=== PATIENT | male | born 1955 | race Caucasian/White ===

== ENCOUNTER 2022-10-31 09:38 | Outpatient (CLI) | payer MEDICARE, SELFPAY ==
[2022-10-31 18:27] LABS: Alanine Aminotransferase 48 U/L (6-50); Albumin Level 4.5 g/dL (3.5-5.1); Alkaline Phosphatase 77 U/L (38-126); Anion Gap 7 mmol/L (8-16); Aspartate Amino Transferase 55 U/L (17-59); Bilirubin,Total 1.4 mg/dL (0.2-1.3); Blood Urea Nitrogen 20 mg/dL (9-20); Calcium 9.3 mg/dL (8.4-10.2); Carbon Dioxide 30 mmol/L (22-30); Chloride 100 mmol/L (98-107); Cholesterol 124 mg/dL (0-200); Estimated Glomerular Filt Rate > 60; Glucose 106 mg/dL (65-110); HDL Direct 23 mg/dL; Potassium 4.6 mmol/L (3.4-5.0); Sodium 137 mmol/L (137-145); Triglycerides 129 mg/dL (<150)
[2022-10-31 18:38] LABS: LDL Cholesterol Direct 70 mg/dL
[2022-10-31 18:58] LABS: Prostate Specific Antigen 3.4 ng/mL (< OR = 4.0)
[2022-10-31 19:30] LABS: Basophils Absolute Auto 0.1 K/mm3 (0.0-0.1); Basophils Percent Auto 0.9 % (0.2-1.2); Eosinophils Absolute Auto 1.5 K/mm3 (0-0.3); Eosinophils Percent Auto 19.1 % (0-4.4); Hematocrit 44.2 % (42.0-52.0); Hemoglobin 14.5 g/dL (14.0-18.0); Immature Granulocyte Absolute 0.02 K/mm3 (0.00-0.031); Immature Granulocyte Percent A 0.2 % (0-0.5); Lymphocytes Absolute Auto 1.73 K/mm3 (0.9-3.2); Lymphocytes Percent Auto 21.5 % (18.3-44.2); Mean Corpuscular HGB Conc 32.8 g/dl (32-36); Mean Corpuscular Hemoglobin 29.4 pg (26-34); Mean Corpuscular Volume 89.7 fl (80-100); Mean Platelet Volume 10.2 fl (7.4-10.4); Neutrophils Absolute Auto 3.7 K/mm3 (1.3-6.7); Neutrophils Percent Auto 46.3 % (45.5-73.1); Platelet Count Result 276 k/mm3 (150-375); Red Blood Count 4.93 M/mm3 (4.6-6.20); Red Cell Distribution Width 13.6 % (11.5-14.5)
[2022-10-31 19:39] LABS: Hemoglobin A1C 6.4 % (<5.7)
== END 2022-10-31 09:39 | disposition home or self-care (01) ==
LOC: ANHGOSHLAB 09:43
PROVIDERS: PCP Family Medicine; Visit Provider Physician Assistant
DX: R73.03 Prediabetes (principal); E78.2 Mixed hyperlipidemia; I10 Essential (primary) hypertension; R97.20 Elevated prostate specific antigen [PSA]; Z12.5 Encounter for screening for malignant neoplasm of prostate
CPT/HCPCS: 36415; 80053; 80061; 83036; 84153; 84443; 85025; G0103

== ENCOUNTER 2022-12-11 01:01 | Day surgery (SDC) | payer MEDICARE, SELFPAY ==
[2022-11-26 15:28] VITALS: BMI 27.8
[2022-12-11 08:17] VITALS: BP 104/64; PULSE 82; RESP 18; TEMP 36.1; O2SAT 97
[2022-12-11 08:32] LABS: Glucose Point of Care 90 mg/dl (65-105)
[2022-12-11] MEDS: LACTATED RINGERS 1,000 ML 150 ML IV CONT (08:33)
--- NOTE | 2022-12-11 08:47 | PM.HPGS ---
History of Present Illness History of Present Illness Consent: Risks, benefits, and alternatives have been discussed and questions answered. Patient agrees to proceed with procedure. Chief complaint: neoplasm screening Narrative: Sheldon Becerril is a 67 year old male Presents for screening colonoscopy. Patient's current weight appetite and bowel movements are normal. Patient denies abdominal pain. He has had no bleeding. Family history is noncontributory. Patient's previous colonoscopy 12 years ago was unremarkable. Review of Systems Review of Systems: Review of systems noncontributory. PMFSH Family History Family History Father Diabetes mellitus Hypertension Family history of malignant neoplasm Mother Diabetes mellitus Hypertension Social History Social History Smoking status: Never smoker Alcohol intake: current Drinks per week: 1 Substance use: never Substance use type: does not use Lack of Transportation: No Lack of Food: Never True Current Housing: I Have Housing Concerned About Future Housing: No Difficulty Paying Gas/Electric Bills: No Difficulty Paying for Meds: No Currently Unemployed: No Education: High School Diploma/GED Difficulty w/ Childcare or Family Care: No Spiritual care concerns: No Meds Home Medications and Allergies Home Medications Medication Instructions Recorded Confirmed Type hydroxychloroquine 200 mg tablet 200 mg PO DAILY 11/14/20 11/26/22 History magnesium oxide 500 mg tablet 750 mg PO DAILY 11/14/20 11/26/22 History lisinopril 40 mg tablet 40 mg PO DAILY #90 tabs 05/24/22 11/26/22 Rx atorvastatin 40 mg tablet 40 mg PO DAILY #90 tabs 06/11/22 11/26/22 Rx metformin 500 mg tablet See Rx Instructions .Route 10/15/22 11/26/22 Rx .COMPLEX #90 tabs aspirin 81 mg capsule 81 mg PO DAILY 11/06/22 11/26/22 History [id number] 120 mcg-lutein 1 tablet PO DAILY 11/06/22 11/26/22 History 150 mcg-herb 50 mg chewable tablet (Alive Men's 50 Plus Multivitamin) sodium,potassium,mag sulfates 17.5 See Rx Instructions PO .COMPLEX 11/06/22 11/26/22 Rx gram-3.13 gram-1.6 gram oral soln #354 mL (Suprep Bowel Prep Kit) hydrochlorothiazide 12.5 mg capsule 12.5 mg PO DAILY #90 caps 11/27/22 Rx Allergies Allergy/AdvReac Type Severity Reaction Status Date / Time mushroom Allergy Unknown Nausea Verified 12/11/22 08:16 NO KNOWN DRUG ALLERGIES Allergy Y Uncoded 12/11/22 08:16 (Class Allergy) Vital Signs Vital Signs - 24 hr 12/11/22 08:17 Temperature 97 F L Pulse Rate 82 Respiratory Rate 18 Blood Pressure 104/64 Pulse Oximetry 97 Oxygen Delivery Room Air Exam Narrative: Physical exam reveals patient to be alert. Vital signs stable. HEENT exam is unremarkable. Patient is anicteric. Lungs are clear to auscultation and percussion. Heart is without murmur or extra sounds. Abdomen bowel sounds are present soft nontender with no organomegaly. Digital external rectal exam is normal. Assessment and Plan Assessment and plan (1) Encounter for screening colonoscopy: Code(s): Z12.11 - Encounter for screening for malignant neoplasm of colon Status: Acute Assessment and Plan: Patient presents today for screening colonoscopy. He appears to be at average risk for colon polyps. Further recommendations may be given after endoscopy.
--- NOTE | 2022-12-11 08:48 | WPDANESEPPF ---
Anes - Initial Pre Proc Eval Procedure: Operation Date: 12/11/22 09:30 Proposed Procedures p Screening Colonoscopy - Solo Taylor MD Date/Time: 12/11/22 08:48 Surgeon: Solo Taylor MD Pre Op Diagnosis: neoplasm screening Patient Data Age: 67 Gender: M Height: 1.78 m Weight: 88.1 kg Last Vital Signs Temp 97 F L 12/11/22 08:17 Pulse 82 12/11/22 08:17 Resp 18 12/11/22 08:17 BP 104/64 12/11/22 08:17 Pulse Ox 97 12/11/22 08:17 O2 Del Method Room Air 12/11/22 08:17 Allergies Allergy/AdvReac Type Severity Reaction Status Date / Time mushroom Allergy Unknown Nausea Verified 12/11/22 08:16 NO KNOWN DRUG ALLERGIES Allergy Y Uncoded 12/11/22 08:16 (Class Allergy) Home Medications Medication Instructions Recorded Confirmed Type hydroxychloroquine 200 mg tablet 200 mg PO DAILY 11/14/20 11/26/22 History magnesium oxide 500 mg tablet 750 mg PO DAILY 11/14/20 11/26/22 History lisinopril 40 mg tablet 40 mg PO DAILY #90 tabs 05/24/22 11/26/22 Rx atorvastatin 40 mg tablet 40 mg PO DAILY #90 tabs 06/11/22 11/26/22 Rx metformin 500 mg tablet See Rx Instructions .Route 10/15/22 11/26/22 Rx .COMPLEX #90 tabs aspirin 81 mg capsule 81 mg PO DAILY 11/06/22 11/26/22 History [id number] 120 mcg-lutein 1 tablet PO DAILY 11/06/22 11/26/22 History 150 mcg-herb 50 mg chewable tablet (Alive Men's 50 Plus Multivitamin) sodium,potassium,mag sulfates 17.5 See Rx Instructions PO .COMPLEX 11/06/22 11/26/22 Rx gram-3.13 gram-1.6 gram oral soln #354 mL (Suprep Bowel Prep Kit) hydrochlorothiazide 12.5 mg capsule 12.5 mg PO DAILY #90 caps 11/27/22 Rx Laboratory Tests 12/11/22 08:28 POC Capillary Glucose 90 mg/dl mg/dl (65-105) Patient hx anesthesia problems: none Family hx anesthesia problems: none Results Review: All pre-operative results and documents have been reviewed as part of the pre-operative evaluation. [facility] Family History Family History Father Diabetes mellitus Hypertension Family history of malignant neoplasm Mother Diabetes mellitus Hypertension Social History Social History Smoking status: Never smoker Alcohol intake: current Drinks per week: 1 Substance use: never Substance use type: does not use Lack of Transportation: No Lack of Food: Never True Current Housing: I Have Housing Concerned About Future Housing: No Difficulty Paying Gas/Electric Bills: No Difficulty Paying for Meds: No Currently Unemployed: No Education: High School Diploma/GED Difficulty w/ Childcare or Family Care: No Spiritual care concerns: No Anes - Eval Final PreProcedure Day of Procedure 12/11/22 08:48 Patient weight: obese Heart: regular rate and rhythm Lungs: clear to auscultation Airway: Mallampati scale class II Neurological: alert and oriented Last oral intake: >/= 8 hours ASA classification: III Emergent: no Anesthetic plan: proceed Anesthesia type and monitoring: general GIVS and standard monitoring Results Review: All pre-operative results and documents have been reviewed as part of the pre-operative evaluation. Informed Consent: The patient's anesthetic plan and its attendant risks and benefits were discussed with the patient/family/POA. Questions were solicited and answers provided to the satisfaction of the patient/family/POA.
[2022-12-11 09:36] VITALS: BP 108/59; PULSE 80; RESP 19; O2SAT 99
[2022-12-11 09:46] VITALS: BP 112/73; PULSE 77; RESP 21; O2SAT 98
[2022-12-11 09:56] VITALS: BP 119/79; PULSE 74; RESP 23; O2SAT 99
== END 2022-12-11 09:59 | disposition home or self-care (01) ==
PROVIDERS: PCP Family Medicine; Visit Provider Internal Medicine Gastroenterology
PROC: 0DJD8ZZ Inspection of Lower Intestinal Tract, Via Natural or Artificial Opening Endoscopic (ICD-10-PCS; CPT 45378; principal; 2022-12-11 09:30)
DX: Z12.11 Encounter for screening for malignant neoplasm of colon (principal); K64.8 Other hemorrhoids; Z79.84 Long term (current) use of oral hypoglycemic drugs; Z79.82 Long term (current) use of aspirin
CPT/HCPCS: G0121; 82948; J2704; J7120

== ENCOUNTER 2023-10-01 10:50 | Emergency (ER) | payer MEDICARE, SELFPAY ==
[2023-10-01 11:03] VITALS: BP 123/65; PULSE 88; RESP 16; TEMP 36.3; O2SAT 98
--- NOTE | 2023-10-01 11:14 | ED.URI ---
HPI - URI/Sore Throat General Chief Complaint: Upper Respiratory Infection Stated Complaint: LOSING VOICE/HEAD COLD Time Seen by Provider: 10/01/23 11:15 Source: patient and RN notes reviewed Mode of arrival: ambulatory Limitations: no limitations History of Present Illness HPI Narrative: 68 y/o male with hx HTN presented for c/o postnasal drainage, cough, and losing his voice. Onset 3 days. Denies shortness breath, wheezing, nausea, vomiting, diarrhea fevers chills. Denies sick contacts. Took a Benadryl for symptoms. MD elicited complaint: cough Related Data Home Medications Medication Instructions Recorded Confirmed hydroxychloroquine 200 mg tablet 200 mg PO DAILY 11/14/20 10/01/23 magnesium oxide 500 mg tablet 750 mg PO DAILY 11/14/20 10/01/23 aspirin 81 mg capsule 81 mg PO DAILY 11/06/22 10/01/23 [id number] 120 mcg-lutein 1 tablet PO DAILY 11/06/22 10/01/23 150 mcg-herb 50 mg chewable tablet (Alive Men's 50 Plus Multivitamin) Allergies Allergy/AdvReac Type Severity Reaction Status Date / Time mushroom Allergy Unknown Nausea Verified 07/18/23 14:47 NO KNOWN DRUG ALLERGIES Allergy Y Uncoded 07/18/23 14:21 (Class Allergy) Review of Systems Review of Systems: CONSTITUTIONAL: Denies malaise, chills, sweats, fever EYES: Denies visual changes, redness, or discharge ENT: Reports rhinorrhea, congestion, denies otalgia, sore throat CARDIOVASCULAR: Denies chest pain, palpitations, edema RESPIRATORY: Reports cough, post nasal drainage. Denies dyspnea GASTROINTESTINAL: Denies abdominal pain, nausea, vomiting, diarrhea SKIN: Denies rash or itching MUSCULOSKELETAL: Denies myalgia NEUROLOGIC: Denies headache PMFSH Past Medical History Medical History (Updated 10/01/23 @ 11:23 by Brittany Wright APRN) Essential (primary) hypertension Prediabetes Family History Family History Father Diabetes mellitus Hypertension Family history of malignant neoplasm Mother Diabetes mellitus Hypertension Social History Social History Smoking status: Never smoker Alcohol intake: current Drinks per week: 1 Substance use: never Substance use type: does not use Lack of Transportation: No Lack of Food: Never True Current Housing: I Have Housing Concerned About Future Housing: No Difficulty Paying Gas/Electric Bills: No Difficulty Paying for Meds: No Currently Unemployed: No Education: High School Diploma/GED Difficulty w/ Childcare or Family Care: No Spiritual care concerns: No Exam Narrative: GENERAL: well-appearing, nontoxic no acute distress. HEAD: Normocephalic EYES: PERRLA, conjunctivae clear ENT: Mucous membranes moist. TM pearly samuel with dull light reflex bilaterally; no tragal tenderness. Mild hoarse voice. Oropharynx not erythematous no lesions or exudate, no drooling, no trismus, uvula midline. No tripod positioning, muffled voice, soft palate or pharyngeal wall bulging NECK: Supple. No lymphadenopathy CHEST: Clear to auscultation, breath sounds equal. No wheezing, rhonchi, rales, or stridor. No respiratory distress, speaks in full sentences. HEART: Regular rate and rhythm. No murmur heard. SKIN: Warm, dry, no rash. NEURO: Alert and oriented x3. PSYCH: Normal mood and affect Course Course Emergency Course: Patient is aware of diagnosis, understands and agrees to treatment plan. Anticipatory guidance given. Patient agrees to follow-up as directed and is aware of reasons to seek care at the emergency department. Portions of this record may have been created with voice recognition software Level of Care: Express Care Visit Vital Signs Vital signs: Vital Signs Temperature 97.4 F L 10/01/23 11:03 Pulse Rate 88 10/01/23 11:03 Respiratory Rate 16 10/01/23 11:03 Blood Pressure 123/65 10/01/23 11:03 Pulse Oximetry 98 09/05
== END 2023-10-01 11:22 | disposition home or self-care (01) ==
PROVIDERS: Emergency Provider Nurse Practitioner Family; PCP Family Medicine
DX: J10.1 Influenza due to other identified influenza virus with other respiratory manifestations (principal); Z20.822 Contact with and (suspected) exposure to COVID-19; I10 Essential (primary) hypertension; R73.03 Prediabetes; Z79.82 Long term (current) use of aspirin
CPT/HCPCS: 87426; 87804; 99213; C9803; G0463

== ENCOUNTER 2023-10-31 15:21 | Emergency (ER) | payer MEDICARE, SELFPAY ==
--- NOTE | 2023-10-31 15:27 | ED.LOWEXIN ---
HPI - Extremity Injury (Lower) General Chief Complaint: Extremity Problem,Nontraumatic Stated Complaint: Ankle pain Time Seen by Provider: 10/31/23 15:55 Source: patient Mode of arrival: ambulatory Limitations: no limitations History of Present Illness HPI Narrative: Sheldon is a 68-year-old male patient presenting to the clinic today with complaints left ankle pain and swelling times 5 days. Denies any known fever or chills. States this is not having much pain with walking on it. Has developed a red rash around the ankle. No history of venous stasis, peripheral vascular disease, gout, or cellulitis Related Data Home Medications Medication Instructions Recorded Confirmed hydroxychloroquine 200 mg tablet 200 mg PO DAILY 11/14/20 10/31/23 magnesium oxide 500 mg tablet 750 mg PO DAILY 11/14/20 10/31/23 aspirin 81 mg capsule 81 mg PO DAILY 11/06/22 10/31/23 [id number] 120 mcg-lutein 1 tablet PO DAILY 11/06/22 10/31/23 150 mcg-herb 50 mg chewable tablet (Alive Men's 50 Plus Multivitamin) Allergies Allergy/AdvReac Type Severity Reaction Status Date / Time mushroom Allergy Unknown Nausea Verified 07/18/23 14:47 NO KNOWN DRUG ALLERGIES Allergy Y Uncoded 07/18/23 14:21 (Class Allergy) Review of Systems Review of Systems: Pertinent positives per HPI. Patient denies any fever, chills, rash, headache, visual changes, dizziness, cough, runny nose, sore throat, shortness of breath, chest pain, palpitations, nausea, vomiting, diarrhea, constipation, abdominal pain, or any urinary issues. [facility] Past Medical History Medical History (Updated 10/31/23 @ 16:33 by Jared Jorgensen APRN) Essential (primary) hypertension Prediabetes Family History Family History Father Diabetes mellitus Hypertension Family history of malignant neoplasm Mother Diabetes mellitus Hypertension Social History Social History Smoking status: Never smoker Alcohol intake: current Drinks per week: 1 Substance use: never Substance use type: does not use Lack of Transportation: No Lack of Food: Never True Current Housing: I Have Housing Concerned About Future Housing: No Difficulty Paying Gas/Electric Bills: No Difficulty Paying for Meds: No Currently Unemployed: No Education: High School Diploma/GED Difficulty w/ Childcare or Family Care: No Spiritual care concerns: No Comments At the time of my signature, I reviewed and agree with the nursing past medical, surgical, social, and family history. There is no relevant family history pertinent to the patient complaint. Exam Narrative: General: Well-developed, well nourished, in no apparent distress Head: Normocephalic, atraumatic. Cardio: Regular rate and rhythm, s1 and s2 normal, no murmur appreciated. Resp: Clear to auscultation bilaterally, no rhonchi, rales, wheezing or rubs. Musculoskeletal: No deformity, tender to palpation over the left medial ankle joint, no erythema noted, slight red rash around the lateral and medial ankle, grossly normal range of motion, muscle strength strong and equal, peripheral pulse strong, no edema, no cyanosis, normal gait and station Course Course Emergency Course: Portions of this record may have been created with voice recognition software. Level of Care: Express Care Visit Vital Signs Vital signs: Vital signs reviewed MDM - Extremity Injury (Lower) MDM Narrative Medical decision making narrative: At the time of visit patient is resting comfortably on the exam table. Patient appears to be nontoxic. I believe he is having an inflammatory response to left ankle but cannot rule out early cellulitis. Will send in prescription for doxycycline and prednisone. Supportive measures were discussed with the patient and they voiced understanding discharge instructions and agrees
[2023-10-31 15:32] VITALS: BP 116/75; PULSE 103; RESP 16; TEMP 36.5; O2SAT 98
[2023-10-31 15:33] VITALS: BP 116/75; PULSE 103; RESP 16; TEMP 36.5; O2SAT 98
== END 2023-10-31 16:41 | disposition home or self-care (01) ==
PROVIDERS: Emergency Provider Nurse Practitioner Family; PCP Family Medicine
DX: M25.472 Effusion, left ankle (principal); I10 Essential (primary) hypertension; Z79.899 Other long term (current) drug therapy; Z79.82 Long term (current) use of aspirin
CPT/HCPCS: 99213; G0463

== ENCOUNTER 2024-11-07 09:45 | Emergency (ER) | payer MEDICARE, SELFPAY ==
--- NOTE | 2024-11-07 09:54 | ED.URI ---
HPI - URI/Sore Throat General Chief Complaint: Upper Respiratory Infection Stated Complaint: Sore Thoat Time Seen by Provider: 11/07/24 09:54 Source: patient Mode of arrival: ambulatory Limitations: no limitations History of Present Illness HPI Narrative: patient is a 69-year-old male that presents with over 1 week of sinus congestion, sore throat and cough. Patient states it started as just congestion but has moved down into his throat and chest. Patient reports hoarseness. Denies any fever, chills, nausea, vomiting, diarrhea. Has been taking Sudafed. Related Data Home Medications ?Medication ?Instructions ?Recorded ?Confirmed ?Last Taken ?Type hydroxychloroquine 200 mg tablet 200 mg PO DAILY 11/14/20 07/30/24 Unknown History magnesium oxide 750 mg PO DAILY 11/14/20 07/30/24 Unknown History aspirin 81 mg capsule 81 mg PO DAILY 11/06/22 07/30/24 Unknown History [id number] 120 mcg-lutein 1 tablet PO DAILY 11/06/22 07/30/24 Unknown History 150 mcg-herb 50 mg chewable tablet (Alive Men's 50 Plus Multivitamin) Allergies Allergy/AdvReac Type Severity Reaction Status Date / Time mushroom Allergy Unknown Nausea Verified 07/30/24 10:47 No Known Drug Allergies Allergy Other Verified 11/07/24 10:58 Review of Systems Review of Systems: All systems reviewed & are unremarkable except as noted in HPI and below Constitutional: Constitutional: Denies body ache(s), Denies chills, Denies fatigue, Denies fever(s), Denies headache(s), Denies malaise and Denies weakness Eyes: Eyes: Denies blurry vision, Denies itchy eyes and Denies loss of vision ENT: Denies otalgia, Denies headache(s), Reports hoarseness, Reports nasal congestion, Denies sinus pain, Reports sinus pressure and Reports sore throat Cardiovascular: Cardiovascular: Denies chest pain, Denies irregular heart rhythm and Denies dyspnea Respiratory: Respiratory: Reports cough and Denies dyspnea Gastrointestinal: Gastrointestinal: Denies abdominal pain, Denies diarrhea, Denies nausea and Denies vomiting Musculoskeletal: Musculoskeletal: Denies back pain, Denies myalgias and Denies arthralgias Integumentary/Breasts: Skin/Breast: Denies pruritus and Denies rash Neurologic: Denies headache(s), Denies loss of vision and Denies weakness Psychiatric: Psychiatric: Reports no additional psychiatric complaints Endocrine: Endocrine: Denies fatigue Allergic/Immunologic: Allergic/Immunologic: Denies itchy eyes PMFSH Past Medical History Medical History Essential (primary) hypertension Prediabetes Family History Family History Father Diabetes mellitus Hypertension Family history of malignant neoplasm Mother Diabetes mellitus Hypertension Social History Social History Social History: caffeine- tea daily Smoking status: Never smoker Alcohol intake: current Drinks per week: 1 Substance use: never Substance use type: does not use Lack of Transportation: No Lack of Food: Never True Current Housing: I Have Housing Concerned About Future Housing: No Difficulty Paying Gas/Electric Bills: No Difficulty Paying for Meds: No Currently Unemployed: No Education: High School Diploma/GED Difficulty w/ Childcare or Family Care: No Spiritual care concerns: No Comments At time of signature, agree with nursing past medical, surgical, social and family history. There is no relevant family history pertinent to the presenting complaint. Exam Const: General: cooperative, healthy appearing, comfortable, no acute distress and well nourished Nutritional Appearance: well nourished Orientation/consciousness: patient oriented x3 Limitations: no limitations HENMT: Head: normal to inspection, normocephalic and atraumatic Ears: hearing grossly normal bilaterally, external ears normal, TM's normal bilaterally, EAC's normal and no periauricular adenopathy Face/Nose/Sinus: Normal external nose present, Abnormal mucous membranes and turbinates present erythematous bilateral and diffuse, normal facial exam, sinuses nontender and face symmetric Face and sinus: normal facial exam, sinuses nontender and face symmetric Mouth: Yes Normal oral and palatal mucosa present, Yes lip normal, Yes tongue normal, Yes Normal salivary glands and ducts present, Yes oropharynx normal and Yes moist mucous membranes Teeth and gingiva: dentition normal Throat: posterior oropharynx normal, tonsils normal and uvula midline Eyes: General: appearance normal, both eyes and all related structures Alignment and Position: alignment normal and position normal Periorbital: periorbital findings normal Eyelids: eyelids normal Pupils: Equal, round and reactive pupils present Neck: Neck: normal visual inspection, full ROM, no lymphadenopathy and supple Chest: Chest palpation & inspection: normal inspection of the chest and normal palpation of entire chest wall Resp: Effort & Inspection: normal respiratory effort, able to speak in complete sentences and Actively coughing productive Auscultation: crackles (course) diffuse, no rales, no rhonchi and no wheezes Cardio: Rate: regular rate Rhythm: regular rhythm Heart sounds: S1 normal heart sound present and S2 normal heart sound present GI: Inspection: normal to inspection Skin: General skin exam: normal color and no rashes or lesions noted Neuro: General: patient oriented x3 and moves all extremities Cranial nerves: Yes Equal, round and reactive pupils present Speech: normal speech Gait exam (Neuro): Normal gait present Extrem: General: normal to inspection, full ROM and no edema Psych: Appearance: grossly normal and well kempt Mental Status: mental status grossly normal Speech and movement: Normal speech and movement present Affect: normal affect Attitude: cooperative Thought process: Normal thought process present Course Course Emergency Course: Discharge instructions reviewed with patient, as well as provided in writing per nursing staff. The instructions also include specific and strict return/GO TO THE ER as well as f/u information. All questions have been answered, and the patient deny any further questions with discharge and discharge plan. Portions of this record may have been created with voice recognition software Level of Care: Express Care Visit Vital Signs Vital signs: Vital Signs Temperature 36.7 C 11/07/24 10:35 Pulse Rate 95 11/07/24 10:35 Respiratory Rate 16 11/07/24 10:35 Blood Pressure 124/72 11/07/24 10:35 Pulse Oximetry 11/07/24 10:35 Temperature 36.7 C 11/07/24 10:35 Pulse Rate 95 11/07/24 10:35 Respiratory Rate 16 11/07/24 10:35 Blood Pressure 124/72 11/07/24 10:35 Pulse Oximetry 11/07/24 10:35 Reviewed MDM - URI/Sore Throat MDM Narrative Medical decision making narrative: Pt well hydrated appearing, in no respiratory distress, hemodynamically stable. Recommend supportive care. The patient is stable at time of discharge the clinical impression was discussed and the patient was given the opportunity to ask questions, which were addressed as completely as possible given the information available at present. Anticipatory guidance and return to care precautions were discussed and the importance of primary care follow-up was stressed and encouraged. The patient voiced understanding of the plan, indications to return, and the need for follow-up. Differential diagnosis considered: Caceres virus, strep pharyngitis, allergic rhinitis, upper respiratory tract infection, sinusitis, rhinosinusitis, nasopharyngitis. viral pharyngitis, otitis media, otitis externa, otitis effusion, foreign body, cerumen impaction, viral syndrome, and influenza.? Exam findings show no acute concerns or changes; patient is non-toxic appearing and is in no distress.? Patient is appropriate for outpatient treatment and follow-up.? Medical Records Attestation: I reviewed the patient's medical records. Lab Data Attestation: I reviewed the patient's lab results. Labs: Lab Results 11/07/24 Range/Units 10:52 POC SARS CoV-2 Ag Negative (Negative) Discharge Plan Discharge Clinical Impression: Upper respiratory infection with cough and congestion Patient Disposition: Home, Self-Care Condition: Stable Instructions: Upper Respiratory Infection (ED) Additional Instructions: Take antibiotic as prescribed. Take steroids per package instructions. Use Tessalon Perles as needed for cough. Use inhaler with spacer as needed. Other symptomatic treatments include: -Alternate Tylenol and Motrin per package directions for fever or pain. -Antihistamine medication such as Benadryl at night and Zyrtec/Claritin/Alecia during the day can help improve symptoms. -Use Flonase twice a day for 5 days then daily to help reduce the inflammation and dry up your sinuses. -You can also use Sudafed or Mucinex. Be sure to drink plenty of water with these medications at least 8 ounces with every dose and it is important to drink 8 to 10 glasses of water per day. Water is a natural decongestant -Eat and drink things that are easy to swallow, like tea or soup, or popsicles. -Oral rinses such as: Salt water gargles and/or may use topical anesthetic (eg. Chloraseptic spray) or lozenges to relieve dryness or throat pain). -Frequent hand washing or hand commercial roofing estimator is one of the best ways to prevent spread of infection. -Using a vaporizer or humidifier at night will also help thin secretions and help with coughing up phlegm. -Follow up with primary care provider in 3-5 days if condition is not improving - For new or worsening symptoms go directly to the nearest ER Patient Language: Tamazight Prescriptions: New amoxicillin 875 mg tablet 875 mg PO Q12H 7 Days Qty: 14 0RF benzonatate 100 mg capsule 100 mg PO BID PRN (Reason: cough) Qty: 14 0RF methylprednisolone [Medrol (Dorian)] 4 mg tablets,dose pack See Rx Instructions .ROUTE .COMPLEX Qty: 21 0RF Rx Instructions: orally per package directions albuterol sulfate 90 mcg/actuation HFA aerosol inhaler 2 puff inhalation QID PRN (Reason: shortness of breath or wheezing) Qty: 6.7 0RF (DME) Aerochamber MV Spacer See Rx Instructions .Route Qty: 1 0RF Rx Instructions: As directed No Action magnesium oxide 500 mg tablet 750 mg PO DAILY hydroxychloroquine 200 mg tablet 200 mg PO DAILY Alive Men's 50 Plus Multivit 120 mcg-150 mcg -50 mg tablet,chewable 1 tablet PO DAILY aspirin 81 mg capsule 81 mg PO DAILY cetirizine 10 mg tablet 10 mg PO DAILY Qty: 90 3RF atorvastatin 40 mg tablet 40 mg PO DAILY Qty: 90 1RF metformin 500 mg tablet See Rx Instructions .ROUTE .COMPLEX Qty: 90 1RF Dose Instruction: Take 1 tablet by mouth once daily Rx Instructions: Take 1 tablet by mouth once daily lisinopril 40 mg tablet 40 mg PO DAILY Qty: 90 1RF hydrochlorothiazide 12.5 mg capsule 12.5 mg PO DAILY Qty: 90 1RF Follow-up/Referrals: PHYSICIAN,[employer] [Primary Care Provider] - Rob Crooks MD [Physician] - 3 Days Time of Disposition: 11:09
[2024-11-07 10:35] VITALS: BP 124/72; PULSE 95; RESP 16; TEMP 36.7; O2SAT 98
[2024-11-07 10:53] LABS: EDCOVIDSCREEN Negative (Negative)
== END 2024-11-07 11:13 | disposition home or self-care (01) ==
PROVIDERS: Emergency Provider Nurse Practitioner Family
DX: J06.9 Acute upper respiratory infection, unspecified (principal); I10 Essential (primary) hypertension; Z20.822 Contact with and (suspected) exposure to COVID-19
CPT/HCPCS: 87426; 99213; G0463

== ENCOUNTER 2025-06-24 11:58 | Emergency (ER) | payer MEDICARE, SELFPAY ==
[2025-06-24 12:16] VITALS: BP 138/78; PULSE 91; RESP 16; TEMP 36.9; O2SAT 99
--- NOTE | 2025-06-24 12:26 | ED.URI ---
HPI - URI/Sore Throat General Chief Complaint: Upper Respiratory Infection Stated Complaint: Sore Throat Time Seen by Provider: 06/24/25 12:19 Source: patient and RN notes reviewed Mode of arrival: ambulatory Limitations: no limitations History of Present Illness HPI Narrative: Patient presents today complaining of a 2 day history of sore throat and mild bilateral temporal headache. Denies congestion, runny nose, fever, or any additional symptoms. He has taken some Sudafed and NyQuil with mild relief and currently rates his pain 2/10. Denies any known sick contacts. Related Data Home Medications ?Medication ?Instructions ?Recorded ?Confirmed ?Last Taken ?Type hydroxychloroquine 200 mg tablet 200 mg PO DAILY 11/14/20 07/30/24 Unknown History magnesium oxide 750 mg PO DAILY 11/14/20 07/30/24 Unknown History aspirin 81 mg capsule 81 mg PO DAILY 11/06/22 07/30/24 Unknown History [id number] 120 mcg-lutein 1 tablet PO DAILY 11/06/22 07/30/24 Unknown History 150 mcg-herb 50 mg chewable tablet (Alive Men's 50 Plus Multivitamin) cholecalciferol (vitamin D3) 10 10 mcg PO DAILY 02/25/25 Unknown History mcg (400 unit) capsule Allergies Allergy/AdvReac Type Severity Reaction Status Date / Time mushroom Allergy Unknown Nausea Verified 06/24/25 12:12 No Known Drug Allergies Allergy Other Verified 06/24/25 12:12 [facility] Past Medical History Medical History Essential (primary) hypertension Prediabetes Family History Family History Father Diabetes mellitus Hypertension Family history of malignant neoplasm Mother Diabetes mellitus Hypertension Social History Social History Social History: caffeine- tea daily Smoking status: Never smoker Alcohol intake: current Drinks per week: 1 Substance use: never Substance use type: does not use Lack of Transportation: No Lack of Food: Never True Current Housing: I Have Housing Concerned About Future Housing: No Difficulty Paying Gas/Electric Bills: No Difficulty Paying for Meds: No Currently Unemployed: No Education: High School Diploma/GED Difficulty w/ Childcare or Family Care: No Spiritual care concerns: No Comments At time of signature, I have reviewed and agree with nursing past medical, surgical, social and family history unless otherwise noted. Please see nursing chart for further information. There is no relevant family history pertinent to the presenting complaint Exam Narrative: GENERAL: Well-appearing, well-nourished, and in no acute distress. HEAD: Normocephalic, atraumatic. EYES: EOMI. No redness or drainage. Conjunctivae normal. ENT: Mucous membranes pink and moist. Nares clear. No rhinorrhea. TMs normal bilaterally. Throat erythematous. Tonsils 3+ without exudate. Uvula midline. NECK: Normal AROM. Supple. No lymphadenopathy. CHEST: No respiratory distress. Clear to auscultation. HEART: Regular rate and rhythm. No murmur appreciated. EXTREMITIES: Normal range of motion. No edema. SKIN: Warm, dry, no rash. Capillary refill normal. Normal skin turgor. NEURO: No focal deficits. Alert and oriented x3. Gait steady. PSYCH: Normal affect. No signs of depression or anxiety. Course Course Level of Care: Express Care Visit Vital Signs Vital signs: Vital Signs Temperature 98.4 F 06/24/25 12:16 Pulse Rate 91 06/24/25 12:16 Respiratory Rate 16 06/24/25 12:16 Blood Pressure 138/78 06/24/25 12:16 Pulse Oximetry 99 06/24/25 12:16 Temperature 98.4 F 06/24/25 12:16 Pulse Rate 91 06/24/25 12:16 Respiratory Rate 16 06/24/25 12:16 Blood Pressure 138/78 06/24/25 12:16 Pulse Oximetry 99 06/24/25 12:16 Reviewed MDM - URI/Sore Throat MDM Narrative Medical decision making narrative: 70-year-old male patient presents with a 2 day history of sore throat headache. Denies any additional symptoms. OTC medication provide some mild relief. Rapid strep positive. Upon exam, patient does have an erythematous throat without exudate, otherwise negative exam. Prescription for amoxicillin sent to pharmacy. Vital signs stable. Anticipatory guidance given. Differential Diagnosis Differential diagnosis: Likely upper respiratory infection, viral infection, pharyngitis and other (Strep throat) Lab Data Attestation: I reviewed the patient's lab results. Lab results narrative: Rapid strep positive Critical Care Time Critical Care Time Critical Care Time: No Discharge Plan Discharge Clinical Impression: Strep throat Patient Disposition: Home Condition: Stable Instructions: Antibiotic Form, Strep Throat (DC) Additional Instructions: You have tested positive for strep throat. Please take the amoxicillin as prescribed until gone. You will be contagious for 24 hours after starting the medication. Take Tylenol or Ibuprofen for pain or fever, if able. Rest and stay hydrated. Follow up with your PCP in 3 days if symptoms are not improving. Go to the ER immediately if you develop worsening symptoms such as shortness of breath, difficulty swallowing. Your blood pressure was elevated above 120/80 today at Urgent Care. This puts you above the threshold for follow up. Please schedule a followup visit with your personal physician as soon as possible, for further evaluation and treatment. Even blood pressure exceeding 120/80 may indicate pre-hypertension. Patient Language: Polish Prescriptions: New amoxicillin 875 mg tablet 875 mg PO Q12H 10 Days Qty: 20 0RF No Action magnesium oxide 500 mg tablet 750 mg PO DAILY hydroxychloroquine 200 mg tablet 200 mg PO DAILY Alive Men's 50 Plus Multivit 120 mcg-150 mcg -50 mg tablet,chewable 1 tablet PO DAILY aspirin 81 mg capsule 81 mg PO DAILY cholecalciferol (vitamin D3) 10 mcg (400 unit) capsule 10 mcg PO DAILY metformin 500 mg tablet See Rx Instructions .ROUTE .COMPLEX Qty: 90 1RF Dose Instruction: Take 1 tablet by mouth once daily Rx Instructions: Take 1 tablet by mouth once daily lisinopril 40 mg tablet 40 mg PO DAILY Qty: 90 1RF hydrochlorothiazide 12.5 mg capsule 12.5 mg PO DAILY Qty: 90 1RF Follow-up/Referrals: Sheldon Yeung MD [Primary Care Provider, [facility]] Time of Disposition: 12:31
[2025-06-24 12:29] LABS: EDSTREPNEGPOS1 Positive (Negative)
== END 2025-06-24 12:40 | disposition home or self-care (01) ==
PROVIDERS: Emergency Provider Nurse Practitioner; PCP Family Medicine
DX: J02.0 Streptococcal pharyngitis (principal); I10 Essential (primary) hypertension; R73.03 Prediabetes; Z79.82 Long term (current) use of aspirin
CPT/HCPCS: 87880; 99213; G0463